=== PATIENT | female | born 1995 | race Caucasian/White ===

== ENCOUNTER 2017-04-29 21:11 | Emergency (ER) | payer OTHER ==
--- NOTE | 2017-04-29 21:46 | RAD ---
RIGHT FOOT THREE VIEWS: 04/29/17 HISTORY: 21-year-old female with right foot pain following an injury two hours ago. No evidence for acute fracture or dislocation. There appears to be a prominent type II secondary elyse icular ossification center. IMPRESSION: No fracture or dislocation. POS: [facility]
[2017-04-29] MEDS ORDERED: Ibuprofen 800 MG TAB ONE (22:03)
== END 2017-04-29 22:45 | disposition home or self-care (01) ==
LOC: ERS 21:11
DX: S93.601A Unspecified sprain of right foot, initial encounter (principal); X50.9XXA Other and unspecified overexertion or strenuous movements or postures, initial encounter